=== PATIENT | female | born 1995 | race Hispanic/Latino ===

== ENCOUNTER 2022-08-26 15:02 | Inpatient (IN) | payer OTHER ==
[2022-08-26 15:27] VITALS: BMI 35.2
[2022-08-26 16:14] LABS: Fetal Membranes Rupture No Membranes Rupture (No Rupture)
[2022-08-26] MEDS ORDERED: Acetaminophen 500 MG TAB PO PRN (16:42)
[2022-08-26] MEDS ORDERED: hydrALAZINE 20 MG/ML VIAL SLOW IVP PRN (16:42)
[2022-08-26] MEDS ORDERED: Lidocaine 1% (PF) 30 ML VIAL SC PRN (16:42)
[2022-08-26] MEDS ORDERED: Promethazine HCl 25 MG/ML VIAL IM PRN (16:42)
[2022-08-26] MEDS ORDERED: Misoprostol 200 MCG TAB PR PRN (16:42)
[2022-08-26] MEDS ORDERED: Ondansetron PF 4 MG/2 ML Vial IVP PRN (16:42)
[2022-08-26] MEDS ORDERED: Carboprost 250 MCG/ML AMP IM PRN (16:42)
[2022-08-26] MEDS ORDERED: Tranexamic Acid 1,000 MG/10 ML VIAL IVP PRN (16:42)
[2022-08-26] MEDS ORDERED: Ibuprofen 800 MG TAB PO PRN (16:42)
[2022-08-26] MEDS ORDERED: Methylergonovine 0.2 MG/ML VIAL IM PRN (16:42)
[2022-08-26] MEDS ORDERED: NS w/ Oxytocin 30 units 500 ML IV SCH (16:45)
[2022-08-26 18:50] LABS: Hemoglobin 12.2 g/dL (12.0-15.5); Mean Corpuscular HGB CONC 34.7 g/dL (32.0-36.0); Mean Corpuscular Hemoglobin 31.4 pg (27.0-33.0); Mean Corpuscular Volume 90.5 fl (81.6-98.3); Mean Platelet Volume 10.5 fl (7.4-10.4); Platelet Count 238 10x3/uL (150-450); RBC Distribution Width 12.9 % (11.5-14.5); Red Blood Cell (RBC) Count 3.89 10x6/uL (3.90-5.03); White Blood Cell (WBC) Count 6.7 10x3/uL (3.5-10.5)
[2022-08-26 19:22] LABS: HBSAg Index 0.16 S/CO (0-0.99); Hep B Surf Ag - L&D Non-Reactive S/CO (NonReactive)
[2022-08-26 19:27] LABS: Syphilis Antibody Nonreactive (Nonreactive); Syphilis Antibody Index 0.02 S/CO (<1.00 Non-Reactive)
[2022-08-27] MEDS ORDERED: NS w/ Oxytocin 30 units 500 ML IV SCH (00:01)
[2022-08-27] MEDS ORDERED: fentaNYL/Ropivacaine Epidural 100 ML ONE (03:00)
[2022-08-27] MEDS ORDERED: fentaNYL 50 mcg/mL 1 mL Vial ONE (03:22)
[2022-08-27] MEDS ORDERED: Acetaminophen 325 MG TAB PO PRN (03:56)
[2022-08-27] MEDS ORDERED: Moisturizing Cream (Eucerin) 113 GM JAR TOP PRN (03:56)
[2022-08-27] MEDS ORDERED: Naloxone HCl 0.4 mg/ml Vial IVP PRN ×2 (03:56)
[2022-08-27] MEDS ORDERED: ePHEDrine Sulfate 50 MG/10 ML VIAL SLOW IVP PRN (03:56)
[2022-08-27] MEDS ORDERED: Lactated Ringer's 500 ML IV PRN (03:56)
[2022-08-27] MEDS ORDERED: Ondansetron PF 4 MG/2 ML Vial IVP PRN (03:56)
[2022-08-27] MEDS ORDERED: Promethazine HCl 25 MG/ML VIAL IM PRN (03:56)
[2022-08-27] MEDS ORDERED: diphenhydrAMINE 50 MG/ML VIAL IVP PRN (03:56)
[2022-08-27] MEDS ORDERED: fentaNYL 2 mcg/Ropivacaine 0.2% Epidural 100 ML CADD EPIDURAL SCH (04:00)
[2022-08-27] MEDS ORDERED: Communication Order-Pharmacy FS SCH (04:00)
[2022-08-27] MEDS ORDERED: Bisacodyl 10 MG SUPP PR PRN (05:40)
[2022-08-27] MEDS ORDERED: Milk Of Magnesia 30 ML UDCUP PO PRN (05:40)
[2022-08-27] MEDS ORDERED: Boostrix 0.5 ML (Tdap) VIAL (>/=7 yrs of age) IM ONE (05:40)
[2022-08-27] MEDS ORDERED: Benzocaine-Menthol 82.5 ML CAN TOP PRN (05:40)
[2022-08-27] MEDS: Docusate 100 MG CAP PO SCH ×2 (10:58→21:47)
[2022-08-27] MEDS: Ibuprofen 800 MG TAB PO SCH ×3 (10:58→21:48)
[2022-08-27] MEDS: Ferrous Sulfate 325 MG TAB PO SCH ×2 (15:03→15:04)
[2022-08-27] MEDS: metroNIDAZOLE 500 MG TAB PO SCH (21:48)
[2022-08-28] MEDS: Ibuprofen 800 MG TAB PO SCH (05:39)
[2022-08-28] MEDS: Ferrous Sulfate 325 MG TAB PO SCH (09:01)
[2022-08-28] MEDS: metroNIDAZOLE 500 MG TAB PO SCH (09:14)
[2022-08-28] MEDS: Docusate 100 MG CAP PO SCH (09:14)
[2022-08-28 09:39] VITALS: BP 104/55; TEMP 98.5
[2022-08-28] MEDS ORDERED: Bupivacaine 0.25% HCL 30 ML VIAL ONE (14:00)
== END 2022-08-28 13:24 | disposition home or self-care (01) | DRG 807 ==
LOC: CSHLD/OP 15:02 → CSHLD 16:49 → CSHPED 08-27 13:06
PROVIDERS: ADMIT Obstetrics & Gynecology; ATTEND Obstetrics & Gynecology
PROC: 3E033VJ Introduction of Other Hormone into Peripheral Vein, Percutaneous Approach (ICD-10-PCS; 2022-08-26)
PROC: 10E0XZZ Delivery of Products of Conception, External Approach (ICD-10-PCS; principal; 2022-08-27)
DX: O41.03X0 Oligohydramnios, third trimester, not applicable or unspecified (principal); Z37.0 Single live birth; Z3A.38 38 weeks gestation of pregnancy; O24.420 Gestational diabetes mellitus in childbirth, diet controlled; Z79.82 Long term (current) use of aspirin; O34.211 Maternal care for low transverse scar from previous cesarean delivery; O69.89X0 Labor and delivery complicated by other cord complications, not applicable or unspecified; O76 Abnormality in fetal heart rate and rhythm complicating labor and delivery
CPT/HCPCS: 36415; 51702; 84112; 85027; 86780; 86850; 86900; 86901; 87340; 87480; 87510; 87660; 99285; J2590; S0020